=== PATIENT | male | born 1960 | race Caucasian/White ===

== ENCOUNTER 2024-02-28 09:53 | Day surgery (SDC) | payer MEDICAID, SELFPAY ==
[~2024-02-28] VITALS: Ht 172.7 cm; Wt 95.0 kg
[~2024-02-28 09:53] MED LIST: HYDR12.55 PO; LISI20TA33 PO
[2024-02-28] MEDS ORDERED: HYDR-3490 PO (10:57)
[2024-02-28] MEDS ORDERED: GARL580C PO (10:57)
[2024-02-28] MEDS ORDERED: THERTAB52 PO (10:57)
[2024-02-28] MEDS ORDERED: OMEG10002 PO (10:57)
[2024-02-28] MEDS ORDERED: RED1TAB. PO (10:57)
[2024-02-28] MEDS ORDERED: LR 1,000 ML IV SCH (11:05)
[2024-02-28] MEDS ORDERED: ROCURONIUM BROMIDE 50MG/5ML VIAL As Ordered ONE (11:56)
[2024-02-28] MEDS ORDERED: GLYCOPYRROLATE INJ 0.2 MG/ML 2 ML VIAL As Ordered ONE (11:56)
[2024-02-28] MEDS ORDERED: propofoL 200 MG/20 ML VIAL As Ordered ONE (11:56)
[2024-02-28] MEDS ORDERED: ONDANSETRON 4MG 2ML VIAL As Ordered ONE (11:56)
[2024-02-28] MEDS ORDERED: LIDOCAINE 2% 100MG/5ML SDV (FOR ANES.) As Ordered ONE (11:56)
[2024-02-28] MEDS ORDERED: ACETAMINOPHEN 1000MG 100ML IV BAG As Ordered ONE (11:56)
[2024-02-28] MEDS ORDERED: SUGAMMADEX SODIUM 500 MG/5 ML VIAL (BRIDION) As Ordered ONE (11:56)
[2024-02-28] MEDS ORDERED: fentaNYL 100 MCG/2 ML INJECTION As Ordered ONE (11:56)
[2024-02-28] MEDS ORDERED: MIDAZOLAM INJ 2MG/2ML VIAL As Ordered ONE (11:56)
[2024-02-28] MEDS ORDERED: HEPARIN SOD (PORCINE) 5000UNITS/ML 1ML VIAL/SYRINGE As Ordered ONE (13:01)
[2024-02-28] MEDS: ceFAZolin SOD 2 GM in IV 1 EA IV ONE (13:04)
[2024-02-28] MEDS ORDERED: ONDANSETRON 4MG 2ML VIAL IV PRN ×2 (13:15→17:40)
[2024-02-28] MEDS ORDERED: ACETAMINOPHEN TAB 650MG DOSE (2X325MG) PO PRN (13:15)
[2024-02-28] MEDS ORDERED: PERCOCET 5MG/325MG TAB PO PRN ×2 (13:15)
[2024-02-28] MEDS ORDERED: HYDROmorphone HCL 2MG/ML 1ML VIAL As Ordered ONE (15:01)
[2024-02-28] MEDS ORDERED: HOME MED LIST COMPLETE! XX SCH (15:05)
[2024-02-28] MEDS ORDERED: ePHEDrine SULFATE 25 MG/5 ML(5MG/ML) SYRINGE As Ordered ONE (15:14)
[2024-02-28] MEDS: ceFAZolin 2 GM/D5W 50 ML IV BAG As Ordered ONE (17:10)
[2024-02-28] MEDS ORDERED: oxyCODONE 5MG TAB PO PRN (17:40)
[2024-02-28] MEDS: LR 1,000 ML IV SCH (17:40)
[2024-02-28] MEDS ORDERED: fentaNYL 100 MCG/2 ML INJECTION IV PRN (17:40)
[2024-02-28] MEDS: LIDOCAINE 1% SDV 30ML VIAL As Ordered ONE (17:56)
[2024-02-28] MEDS: HYDROMORPHONE HCL 0.5 MG/ 0.5 ML SYRINGE IV PRN (18:31)
[2024-02-28 18:40] LABS: HEMATOCRIT 40.3 % (42.0-52.0); HEMOGLOBIN 14.6 g/dl (13.5-17.5); MEAN CORPUSCULAR HEMOGLOBIN 32.9 pg (27.0-33.0); MEAN CORPUSCULAR HGB CONC 36.2 g/dl (32.0-36.5); MEAN CORPUSCULAR VOLUME 90.8 fl (80.0-96.0); PLATELET COUNT, AUTOMATED 350 10^3/uL (150-450); RED BLOOD COUNT 4.44 10^6/uL (4.30-6.10); WHITE BLOOD COUNT 14.4 10^3/uL (4.0-10.0)
[2024-02-28 18:53] VITALS: BP 116/75; TEMP 96.8; O2SAT 96
[2024-02-28] MEDS: NS 1,000 ML IV SCH (19:02)
[2024-02-28 19:05] LABS: BLOOD UREA NITROGEN 14 MG/DL (9-23); CALCIUM LEVEL 9.4 MG/DL (8.3-10.6); CARBON DIOXIDE LEVEL 28 MMOL/L (20-31); CHLORIDE LEVEL 101 MMOL/L (98-107); CREATININE FOR GFR 0.89 MG/DL (0.70-1.30); GLOMERULAR FILTRATION RATE > 60.0 (>49); GLUCOSE, FASTING 186 MG/DL (74-106); POTASSIUM SERUM 3.3 MMOL/L (3.5-5.1); SODIUM LEVEL 136 MMOL/L (136-145)
[2024-02-28 19:23] VITALS: BP 118/76; TEMP 96.8; O2SAT 96
[2024-02-28] MEDS: DOCUSATE SODIUM 100MG CAPSULE PO SCH (20:06)
[2024-02-28] MEDS: ceFAZolin SOD 1 GM in D5W MINI-BAG PLUS 50 ML IV SCH (20:07)
[2024-02-28] MEDS ORDERED: BACT800T5 PO (20:44)
[2024-02-28] MEDS ORDERED: PERCOCET PO (20:44)
[2024-02-28] MEDS ORDERED: COLA100C5 PO (20:44)
[2024-02-28 21:00] VITALS: BP 114/60; TEMP 97.2; O2SAT 95
[2024-02-28 22:00] VITALS: BP 98/59; TEMP 97.7; O2SAT 93
[2024-02-28 23:00] VITALS: BP 102/62; TEMP 97.7; O2SAT 94
[2024-02-29] VITALS: BP 101/62; TEMP 97.7; O2SAT 96
[2024-02-29 04:00] VITALS: BP 123/76; TEMP 98.1; O2SAT 94
[2024-02-29 06:04] LABS: HEMATOCRIT 39.7 % (42.0-52.0); MEAN CORPUSCULAR HEMOGLOBIN 32.6 pg (27.0-33.0); MEAN CORPUSCULAR HGB CONC 35.3 g/dl (32.0-36.5); MEAN CORPUSCULAR VOLUME 92.5 fl (80.0-96.0); PLATELET COUNT, AUTOMATED 287 10^3/uL (150-450); RED BLOOD COUNT 4.29 10^6/uL (4.30-6.10); WHITE BLOOD COUNT 15.8 10^3/uL (4.0-10.0)
[2024-02-29 06:29] LABS: BLOOD UREA NITROGEN 14 MG/DL (9-23); CALCIUM LEVEL 8.9 MG/DL (8.3-10.6); CARBON DIOXIDE LEVEL 30 MMOL/L (20-31); CHLORIDE LEVEL 102 MMOL/L (98-107); CREATININE FOR GFR 0.86 MG/DL (0.70-1.30); GLOMERULAR FILTRATION RATE > 60.0 (>49); GLUCOSE, FASTING 138 MG/DL (74-106); POTASSIUM SERUM 3.6 MMOL/L (3.5-5.1); SODIUM LEVEL 137 MMOL/L (136-145)
[2024-02-29 08:00] VITALS: BP 130/77; TEMP 98.1; O2SAT 96
[2024-02-29] MEDS: HEPARIN SOD (PORCINE) 5000UNITS/ML 1ML VIAL/SYRINGE SC SCH (09:13)
[2024-02-29 09:14] VITALS: BP 116/65
[2024-02-29 12:40] VITALS: BP 103/68; TEMP 97.2; O2SAT 97
== END 2024-02-29 14:25 | disposition home or self-care (01) ==
LOC: M SDC 09:53 → UNDOADMIN 09:53 → M OR 09:53 → EDSTATUS 11:30 → M MSPAV 18:51 → M OR 18:51 → UNDODISIN 02-29 14:25 → M SDC 02-29 14:25
PROVIDERS: ATTEND Urology
DX: C61 Malignant neoplasm of prostate (principal); I10 Essential (primary) hypertension; Z79.899 Other long term (current) drug therapy
CPT/HCPCS: 36415; 38571; 55866; 80048; 85027; 86850; 86900; 86901; 88307; 88309; 96374; 96376; J0131; J0665; J0690; J1100; J1170; J1596; J2250; J2405; J3010; S2900

== ENCOUNTER → 2024-06-05 | Outpatient (REF) | payer MEDICAID, OTHER ==
[~2024-06-05] MED LIST changes: +BACT800T5 PO; +COLA100C5 PO; +GARL580C PO; +HYDR-3490 PO; +OMEG10002 PO; +PERCOCET PO; +RED1TAB. PO; +THERTAB52 PO
[2024-06-05 18:02] LABS: URIC ACID 8.5 MG/DL (3.7-9.2)
[2024-06-05 18:05] LABS: RHEUMATOID FACTOR QUANT 8.7 IU/ML (<14)
== END ==
LOC: M LAB REF 16:45
PROVIDERS: ATTEND Internal Medicine
DX: M25.561 Pain in right knee (principal)

== ENCOUNTER → 2025-01-08 | Outpatient (REF) | payer OTHER | LOC: M LAB REF 14:41 | PROVIDERS: ATTEND Physician Assistant Medical | DX: M79.644 Pain in right finger(s) (principal) ==